=== PATIENT | female | born 1995 | race Caucasian/White ===

== ENCOUNTER 2020-01-25 18:32 | Emergency (ER) | payer OTHER ==
[2020-01-25] MEDS ORDERED: PRENATAL VIT-IRON-FOLIC ACID 1 EACH CAP PO STA (19:24)
--- NOTE | 2020-01-25 19:28 | ED ---
General Adult HPI - General Chief complaint: Recheck/Abnormal Lab/Rx Stated complaint: Preg sent by [facility] Time Seen by Provider: 01/25/20 19:03 Source: patient, RN notes reviewed, old records reviewed Mode of arrival: ambulatory Limitations: no limitations - History of Present Illness Initial comments: 24-year-old female patient presents to ED if chief complaint of . Patient reports that she went to [facility] facility for heroin abuse. She reports that they do a urine previously discussed before admission. Reports that hers was positive. 4 subcuticular another one which was also positive. She states that she did have a menstrual period approximately one month ago. She denies any complaints. She is a . Systemic: Pt denies fatigue, fever/chills, rash. Pt denies weakness, night sweats, weight loss. Neuro: Pt denies headache, visual disturbances, syncope or pre-syncope. HEENT: Pt denies ocular discharge or irritation, otalgia, rhinorrhea, pharyngitis or notable lymphadenopathy. Cardiopulmonary: Pt denies chest pain, SOB, heart palpitations, dyspnea on exertion. Abdominal/GI: Pt denies abdominal pain, n/v/d. : Pt denies dysuria, burning w/ urination, frequency/urgency. Denies new onset urinary or bowel incontinence. MSK: Pt denies myalgia, loss of strength or function in extremities. Neuro: Pt denies new onset weakness, paresthesias. - Related Data Previous Rx's Medication Instructions Recorded Pnv No.95/Ferrous Fum/Folic AC 1 each PO Q24HR 30 Days #30 tablet 01/25/20 [ Multivitamin Tablet] Allergies Allergy/AdvReac Type Severity Reaction Status Date / Time No Known Allergies Allergy Verified 01/25/20 18:39 Review of Systems ROS Statement: Those systems with pertinent positive or pertinent negative responses have been documented in the HPI. ROS Other: All systems not noted in ROS Statement are negative. Past Medical History Past Medical History: No Reported History History of Any Multi-Drug Resistant Organisms: None Reported Past Surgical History: No Surgical Hx Reported Past Psychological History: ADD/ADHD Smoking Status: Never smoker Past Alcohol Use History: None Reported Past Drug Use History: Heroin General Exam - General Exam Comments Initial Comments: Constitutional: NAD, AOX3, Pt has pleasant affect. HEENT: NC/AT, trachea midline, neck supple. External ears appear normal, without discharge. Mucous membranes moist. EOM intact. There is no scleral icterus. No pallor noted. Cardiopulmonary: RRR, no murmurs, rubs or gallops, no JVD noted. Lungs CTAB in anterior and posterior valenzuela. No peripheral edema. Abdominal exam: Abdomen soft and non-distended. Abdomen non-tender to palpation in all 4 quadrants. Bowel sounds active in LLQ. No hepatosplenomegaly. No ecchymosis Neuro: CN II-XII grossly intact. No nuchal rigidity. No raccon eyes, no donaldson sign. MSK: Full active ROM in upper and lower extremities. Limitations: no limitations Course Vital Signs 01/25/20 18:36 Temperature 98.5 F Pulse Rate 105 H Respiratory 18 Rate Blood Pressure 130/71 O2 Sat by Pulse 100 Oximetry Medical Decision Making - Medical Decision Making 24-year-old female patient presents to ED if chief complaint of . Patient reports that she went to [facility] for heroin abuse. She reports that they do a urine previously discussed before admission. Reports that hers was positive. 4 subcuticular another one which was also positive. She states that she did have a menstrual period approximately one month ago. She denies any complaints. She is a . Patient vital signs are stable, afebrile. Physical exam is essentially acute pathology. Laboratory investigations revealed hCG quantitative of 14,000. UA negative. An vaginal ultrasound display single viable intrauterine prink C corresponding to ultrasound 6 weeks 3 days of estimated date of delivery 09/16/20. Patient will be discharged with outpatient follow-up with her primary caregiver she'll follow with her previously established A[employer]MI[employer]Y [employer]ER. Patient will be prescribed vitamins. Case discussed with Dr. gee. - Lab Data Result diagrams: 01/25/20 20:00 01/25/20 20:00 Lab Results 01/25/20 01/25/20 01/25/20 Range/Units 20:00 20:00 20:00 WBC 3.6 L (3.8-10.6) k/uL RBC 4.21 (3.80-5.40) m/uL Hgb 11.6 (11.4-16.0) gm/dL Hct 36.2 (34.0-46.0) % MCV 86.0 (80.0-100.0) fL MCH 27.4 (25.0-35.0) pg MCHC 31.9 (31.0-37.0) g/dL RDW 14.2 (11.5-15.5) % Plt Count 239 (150-450) k/uL Neutrophils % 61 % Lymphocytes % 23 % Monocytes % 7 % Eosinophils % 3 % Basophils % 1 % Neutrophils # 2.2 (1.3-7.7) k/uL Lymphocytes # 0.9 L (1.0-4.8) k/uL Monocytes # 0.3 (0-1.0) k/uL Eosinophils # 0.1 (0-0.7) k/uL Basophils # 0.0 (0-0.2) k/uL Sodium 136 L (137-145) mmol/L Potassium 4.4 (3.5-5.1) mmol/L Chloride 102 (98-107) mmol/L Carbon Dioxide 24 (22-30) mmol/L Anion Gap 10 mmol/L BUN 7 (7-17) mg/dL Creatinine 0.57 (0.52-1.04) mg/dL Est GFR (CKD-EPI)AfAm >90 (>60 ml/min/1.73 sqM) Est GFR (CKD-EPI)NonAf >90 (>60 ml/min/1.73 sqM) Glucose 126 H (74-99) mg/dL Calcium 9.2 (8.4-10.2) mg/dL Total Bilirubin 0.3 (0.2-1.3) mg/dL AST 33 (14-36) U/L ALT 20 (4-34) U/L Alkaline Phosphatase 73 (38-126) U/L Total Protein 6.7 (6.3-8.2) g/dL Albumin 4.1 (3.5-5.0) g/dL HCG, Quant 63812.0 mIU/mL Urine Color Colorless Urine Appearance Clear (Clear) Urine pH 7.5 (5.0-8.0) Ur Specific [place] 1.002 (1.001-1.035) Urine Protein Negative (Negative) Urine Glucose (UA) Negative (Negative) Urine Ketones Negative (Negative) Urine Blood Negative (Negative) Urine Nitrite Negative (Negative) Urine Bilirubin Negative (Negative) Urine Urobilinogen <2.0 (<2.0) mg/dL Ur Leukocyte Esterase Negative (Negative) Disposition Clinical Impression: Disposition: HOME SELF-CARE Condition: Stable Instructions (If sedation given, give patient instructions): (ED) Additional Instructions: Follow-up with primary care provider and previous established ANA[employer] CHEMI[employer] TE[employer]ER in 1-2 days. Take is as directed. Your ultrasound shows that you are approximately 6 weeks and 3 days gestation. Return to ED if condition worsens. Prescriptions: Pnv No.95/Ferrous Fum/Folic AC [ Multivitamin Tablet] 1 each PO Q24HR 30 Days #30 tablet Is patient prescribed a controlled substance at d/c from ED?: No Referrals: Kevyn Hogue DO [Primary Care Provider] - 1-2 days
[2020-01-25 20:08] LABS: Appearance,Urine Clear (Clear); Basophils % (A) 1 %; Bilirubin,Urine Negative (Negative); Blood,Urine Negative (Negative); Color,Urine Colorless; Eosinophils # (A) 0.1 k/uL (0-0.7); Eosinophils % (A) 3 %; Glucose,Urine (UA) Negative (Negative); HCT 36.2 % (34.0-46.0); HGB 11.6 gm/dL (11.4-16.0); Ketones,Urine Negative (Negative); Leukocyte Esterase,Urine Negative (Negative); Lymphocytes # (A) 0.9 k/uL (1.0-4.8); Lymphocytes % (A) 23 %; MCH 27.4 pg (25.0-35.0); MCHC 31.9 g/dL (31.0-37.0); Monocytes # (A) 0.3 k/uL (0-1.0); Monocytes % (A) 7 %; Neutrophils # (A) 2.2 k/uL (1.3-7.7); Neutrophils % (A) 61 %; Nitrite,Urine Negative (Negative); PH, Urine 7.5 (5.0-8.0); Platelet Count 239 k/uL (150-450); Protein,Urine Negative (Negative); RBC 4.21 m/uL (3.80-5.40); RDW 14.2 % (11.5-15.5); Specific Gravity,Urine 1.002 (1.001-1.035); Urobilinogen,Urine <2.0 mg/dL (<2.0); WBC 3.6 k/uL (3.8-10.6)
[2020-01-25 20:18] LABS: ALT 20 U/L (4-34); AST 33 U/L (14-36); African American GFR (CKD) >90 (>60 ml/min/1.73 sqM); Albumin 4.1 g/dL (3.5-5.0); Alkaline Phosphatase 73 U/L (38-126); Anion Gap 10 mmol/L; Blood Urea Nitrogen 7 mg/dL (7-17); Calcium 9.2 mg/dL (8.4-10.2); Carbon Dioxide 24 mmol/L (22-30); Chloride 102 mmol/L (98-107); Glucose 126 mg/dL (74-99); Non-African American GFR(CKD) >90 (>60 ml/min/1.73 sqM); Potassium 4.4 mmol/L (3.5-5.1); Sodium 136 mmol/L (137-145); Total Bilirubin 0.3 mg/dL (0.2-1.3); Total Protein 6.7 g/dL (6.3-8.2)
--- NOTE | 2020-01-25 21:41 | US ---
EXAMINATION TYPE: Transabdominal DATE OF EXAM: 01/25/2020 9:19 PM COMPARISON: NONE CLINICAL HISTORY: . going to rehab need to find out how far along she is. EXAM PERFORMED: Transabdominal (TA) EXAM MEASUREMENTS: GESTATIONAL AGE / DATING Physician Established: Not yet established Dates by LMP: LMP unknown Dates by First Scan: No previous this is first scan Dates by Current Scan for: (6 weeks/3 days) EDC: 09/16/2020 MATERNAL ANATOMY Uterus: 9.2 x 5.2 x 7.0 cm Right Ovary: 3.6 x 2.4 x 2.2 cm Left Ovary: 2.6 x 1.6 x 1.8 cm Post CDS / Adnexa: wnl Presence of free fluid: no Presence of corpus luteal cyst: Yes right Presence of subchorionic bleed: no GESTATION / SURVEY CRL: 0.63 cm (6 weeks/3 days) Yolk Sac (normal less than 6mm): 3 mm Heart Rate: 165 bpm Rhythm: Normal IUP: Viable IUP Beta HcG (if available): 04993.0 IMPRESSION: Single viable intrauterine corresponding to ultrasound age 6 weeks 3 days with estimated da te of delivery 09/16/2020 by today's exam
[2020-01-25 22:48] VITALS: BP 118/65; PULSE 88; RESP 20; TEMP 98.2
== END 2020-01-25 22:15 | disposition home or self-care (01) ==
LOC: EC 18:32
DX: O99.321 Drug use complicating pregnancy, first trimester (principal); F11.10 Opioid abuse, uncomplicated; Z3A.01 Less than 8 weeks gestation of pregnancy
CPT/HCPCS: 36415; 80053; 85025; 81003; 84702; 76801; 99284; S0197